=== PATIENT | male | born 1975 | race Two or more races ===

== ENCOUNTER 2019-04-01 19:16 | Emergency (ER) | payer SELFPAY ==
[~2019-04-01] VITALS: Ht 167.6 cm; Wt 68.0 kg
[2019-04-01 19:27] VITALS: BP 145/93
[2019-04-01] MEDS ORDERED: KETOROLAC 30MG/ML VIAL IM ONE (22:15)
== END 2019-04-01 22:51 | disposition home or self-care (01) ==
LOC: ER 19:16
DX: S16.1XXA Strain of muscle, fascia and tendon at neck level, initial encounter (principal); M25.512 Pain in left shoulder; R07.89 Other chest pain; V98.8XXA Other specified transport accidents, initial encounter; X58.XXXA Exposure to other specified factors, initial encounter; Y93.89 Activity, other specified; Y92.89 Other specified places as the place of occurrence of the external cause; Y99.8 Other external cause status
CPT/HCPCS: 71045; 96372; 99283; J1885